=== PATIENT | female | born 1985 | race Caucasian/White ===

== ENCOUNTER 2016-11-28 12:18 | Emergency (ER) | payer OTHER ==
[2016-11-28] MEDS ORDERED: KETOROLAC TROMETHAMINE 30 MG/ML 1 ML VIAL ONE (13:50)
== END 2016-11-28 14:13 | disposition home or self-care (01) ==
LOC: ED 12:18
DX: M54.5 Low back pain (principal); F17.200 Nicotine dependence, unspecified, uncomplicated
CPT/HCPCS: 99282; 96372; 99283; J1885